=== PATIENT | female | born 2000 | race Caucasian/White ===

== ENCOUNTER 2022-03-12 16:29 | Emergency (ER) | payer SELFPAY ==
[~2022-03-12] VITALS: Ht 152.4 cm; Wt 54.4 kg
[2022-03-12 16:36] VITALS: BP 105/40
[2022-03-12] MEDS ORDERED: IBUP-1842 PO (17:18)
[2022-03-12] MEDS ORDERED: PROM118S5 PO (17:18)
--- NOTE | 2022-03-12 17:26 | NUR ---
21 Y/O FEMALE C/O COLD S/S, COUGH, SORE THROAT , NASAL CONGESTION, SUBJECTIVE FEVERSX 4 DAYS, LAST TOOK TYLENOL IN AM, AFEBRILE IN TRIAGE, RESPIRATIONS EVEN AND UNLABORED NKA PMH: DENIES
--- NOTE | 2022-03-12 17:41 | NUR ---
Patient discharged with v/s stable. Written and verbal after care instructions ABOUT UPPER RESPIRATORY INFECTION given and explained. Patient alert, oriented and verbalized understanding of instructions. Ambulatory with steady gait. All questions addressed prior to discharge. ID band removed. Patient advised to follow up with PMD. Rx of MOTRIN AND PROMETHAZINE DM given. Patient educated on indication of medication including possible reaction and side effects. Opportunity to ask questions provided and answered.
== END 2022-03-12 17:41 | disposition home or self-care (01) ==
LOC: MED 16:29
DX: J06.9 Acute upper respiratory infection, unspecified (principal)
CPT/HCPCS: 99283